=== PATIENT | female | born 1965 | race Caucasian/White ===

== ENCOUNTER 2018-07-24 10:14 | Day surgery (SDC) | payer OTHER ==
[~2018-07-24] VITALS: Ht 177.8 cm; Wt 70.2 kg
[~2018-07-24 10:14] MED LIST: CALC300T34 PO
[2018-07-24] MEDS ORDERED: HYDR200T5 PO (11:31)
[2018-07-24 11:33] VITALS: Ht 177.8 cm; Wt 70.2 kg
[2018-07-24 12:03] VITALS: BP 151/68; PULSE 78; RESP 18
[2018-07-24] MEDS ORDERED: MIDAZOLAM 1 MG/ML 2 ML INJ ONE ×3 (12:39)
[2018-07-24] MEDS ORDERED: FENTAnyl 50 MCG/ML VIAL ONE (12:39)
[2018-07-24 12:58] VITALS: BP 120/59; PULSE 64; RESP 18
== END 2018-07-24 14:24 | disposition home or self-care (01) ==
LOC: GIL 10:14
PROVIDERS: ATTEND Internal Medicine Gastroenterology
DX: Z12.11 Encounter for screening for malignant neoplasm of colon (principal); K64.8 Other hemorrhoids
CPT/HCPCS: 45378; 84703; J2250; J3010; Z7610